=== PATIENT | female | born 1950 | race Caucasian/White ===

== ENCOUNTER 2023-12-29 17:07 | Outpatient (CLI) | payer BC ==
[2023-12-29 18:21] LABS: BASOPHILS % (AUTO) 0.5 %; EOSINOPHILS # (AUTO) 0.1 10^3/uL (0.0-0.7); EOSINOPHILS % (AUTO) 1.4 %; HCT - HEMATOCRIT 36.4 % (37.0-47.0); HGB - HEMOGLOBIN 12.4 g/dL (12.0-16.0); LYMPHOCYTES # (AUTO) 0.8 10^3/uL (1.5-3.5); LYMPHOCYTES % (AUTO) 17.3 %; MEAN CORPUSCULAR HEMOGLOBIN 32.5 pg (27.0-31.0); MEAN CORPUSCULAR HGB CONC 34.1 g/dL (32.0-36.0); MEAN CORPUSCULAR VOLUME 95.3 fL (81.0-99.0); MEAN PLATELET VOLUME 9.5 fL (7.9-10.8); MONOCYTES # (AUTO) 0.5 10^3/uL (0.0-1.0); MONOCYTES % (AUTO) 11.3 %; NEUTROPHILS % (AUTO) 69.3 %; PLT - PLATELET COUNT 154 10^3/uL (130-450); RED BLOOD COUNT 3.82 10^6/uL (4.20-5.40); RED CELL DISTRIBUTION WIDTH 13.1 % (12.0-15.0); WHITE BLOOD COUNT 4.3 x10^3/uL (4.8-10.8)
[2023-12-29 18:23] LABS: CALCIUM, IONIZED 1.12 mmol/L (1.15-1.33); VBG PH 7.375 (7.31-7.41)
[2023-12-29 18:35] LABS: ALBUMIN 4.7 g/dL (3.2-5.5); ALBUMIN/GLOBULIN RATIO 1.6 (1.0-2.2); ALKALINE PHOSPHATASE 61 IU/L (42-121); ALT ALANINE AMINOTRANSFERASE 16 IU/L (10-60); AST ASPARTATE AMINOTRANSFERASE 24 IU/L (10-42); BILIRUBIN,TOTAL 1.3 mg/dL (0.2-1.0); BUN - BLOOD UREA NITROGEN 11 mg/dL (6-20); CALCIUM 9.8 mg/dL (8.5-10.3); CARBON DIOXIDE - CO2 26 mmol/L (21-32); CHLORIDE 89 mmol/L (101-111); CREATININE 0.7 mg/dL (0.6-1.3); CRP - C-REACTIVE PROTEIN < 0.5 mg/dL (<0.5); GFR - MDRD 82 (>89); GLUCOSE 126 mg/dL (74-104); POTASSIUM 4.3 mmol/L (3.5-4.5); SODIUM 124 mmol/L (135-145); TOTAL PROTEIN 7.6 g/dL (6.4-8.9)
[2023-12-29 18:51] LABS: ESTIMATED AVERAGE GLUCOSE 103 mg/dL (70-100); HEMOGLOBIN A1c% 5.2 % (4.27-6.07)
[2023-12-29 18:55] LABS: FERRITIN 253.9 ng/mL (11.0-306.8)
--- NOTE | 2023-12-30 20:24 | XRAY Report ---
PROCEDURE: Chest 2V INDICATIONS: POST COVID-19 CONDITION,UNSPECIFIED TECHNIQUE: 2 views of the chest were acquired. COMPARISON: None. FINDINGS: Surgical changes and devices: None. Lungs and pleura: No pleural effusions or pneumothorax. Lungs are clear. Mediastinum: Mediastinal contours appear normal. Heart size is normal. Descending thoracic aorta i s tortuous. Bones and chest wall: No suspicious bony lesions. Overlying soft tissues appear unremarkable. IMPRESSION: No acute cardiopulmonary process. Reviewed by: Carlo Fitch MD on 12/30/2023 8:22 PM PDT Approved by: Carlo Fitch MD on 12/30/2023 8:22 PM PDT Station ID: [id number]
[2023-12-31 14:09] LABS: VITAMIN D 25-HYDROXY 61.8 ng/mL (30.0-100.0)
[2024-01-01 14:09] LABS: ANTINUCLEAR ANTIBODIES IFA Negative (.)
[2024-01-01 17:08] LABS: THYROGLOBULIN ANTIBODY <1.0 IU/mL (0.0-0.9); THYROID PEROXIDASE (TPO) AB <9 IU/mL (0-34)
== END 2023-12-29 17:08 | disposition home or self-care (01) ==
LOC: DI 17:07
PROVIDERS: ATTEND Registered Nurse
DX: R06.9 Unspecified abnormalities of breathing (principal); R07.89 Other chest pain; R53.83 Other fatigue; U09.9 Post COVID-19 condition, unspecified
CPT/HCPCS: 36415; 80053; 82306; 82330; 82728; 83036; 83970; 84436; 84443; 84481; 85025; 85651; 86038; 86140; 86376; 86800

== ENCOUNTER 2023-12-31 20:50 | Outpatient (CLI) | payer BC ==
[2023-12-31 21:28] LABS: ALBUMIN 4.7 g/dL (3.2-5.5); ALBUMIN/GLOBULIN RATIO 1.7 (1.0-2.2); BILIRUBIN,TOTAL 0.6 mg/dL (0.2-1.0); CALCIUM 9.7 mg/dL (8.5-10.3); CREATININE 0.5 mg/dL (0.6-1.3); POTASSIUM 4.8 mmol/L (3.5-4.5); TOTAL PROTEIN 7.4 g/dL (6.4-8.9)
== END 2023-12-31 20:51 | disposition home or self-care (01) ==
LOC: LAB 20:50
PROVIDERS: ATTEND Registered Nurse
DX: E83.51 Hypocalcemia (principal); R17 Unspecified jaundice; R94.6 Abnormal results of thyroid function studies; E87.1 Hypo-osmolality and hyponatremia
CPT/HCPCS: 36415; 80053

== ENCOUNTER 2024-01-01 12:20 | Outpatient (CLI) | payer BC | END 2024-01-01 12:21 | disposition home or self-care (01) | LOC: LAB 12:20 | PROVIDERS: ATTEND Registered Nurse | DX: U09.9 Post COVID-19 condition, unspecified (principal); R06.09 Other forms of dyspnea; R07.89 Other chest pain; R53.83 Other fatigue | CPT/HCPCS: 36415; 82533 ==